=== PATIENT | female | born 1970 | race Asian ===

== ENCOUNTER 2018-07-21 07:31 | Emergency (ER) | payer OTHER ==
--- NOTE | 2018-07-21 08:10 | ED ---
Skin Complaint - HPI Summary HPI Summary: Pt is a 47 y/o F presenting to the ED with a chief skin complaint. On June 30 , she noticed that she had a scratch on her L hand, and noticed it looked infected on the . She put an abx bandage over it on the , but it did not help. On the 17 of July, the rash began around her mouth, and she woke up the next day with her entire face covered. 07/19, she noticed it all over her body, and yesterday it started to itch and was burning. About a year or so ago, she experienced something similar where she had a scratch on her R hand, but she treated it with tea tree oil and it went away. She reports associated pruritus of her genitals and yellow discharge of her L breast with some pain to her L nipple. Pt denies any fever, chills, erythema of eyes, sore throat, CP, SOB, cough, abdominal pain, N/V, dysuria, hematuria, myalgia, edema, sores on the bottom of her feet or hands, or dizziness. Shes been using oil cleansing soap for the past month or so that she has used in the past, but recently re-introduced, as well as hemp oil. LNMP unknown. - History of Current Complaint Chief Complaint: EDRashSkinAbscess Time Seen by Provider: 07/21/18 07:47 Stated Complaint: POSS ALLERGIC REACTION PER PT Hx Obtained From: Patient Hx Last Menstrual Period: 1 week ago Onset/Duration: Started Weeks Ago, Still Present Skin Exposure Onset/Duration: Weeks Ago - 06/30/18, Worse Since: - 07/07/18 Timing: Constant, Lasting Weeks Onset Severity: Mild Current Severity: Moderate Pain Intensity: 3 Pain Scale Used: 0-10 Numeric Skin Location: Generalized Character: Pruritus, Hives, Redness Aggravating Symptom(s): Nothing Alleviating Symptom(s): Nothing Associated Signs & Symptoms: Rash - Allergy/Home Medications Allergies/Adverse Reactions: Allergies Allergy/AdvReac Type Severity Reaction Status Date / Time erythromycin base Allergy Flushing Verified 09/13/17 09:36 Home Medications: Home Medications NK [No Home Medications Reported] 07/21/18 [History Confirmed 07/21/18] PMH/Surg Hx/FS Hx/Imm Hx Previously Healthy: Yes Endocrine/Hematology History: Denies: Hx Diabetes Respiratory History: Denies: Hx Asthma Infectious Disease History: No Infectious Disease History: Denies: Traveled Outside the [place] in Last 30 Days - Family History Known Family History: Negative: Hypertension, Diabetes - Social History Alcohol Use: Daily Hx Substance Use: No Substance Use Type: Reports: None Hx Tobacco Use: No Smoking Status (MU): Never Smoked Tobacco Review of Systems Negative: Fever, Chills Negative: Erythema Negative: Sore Throat Negative: Chest Pain Negative: Shortness Of Breath, Cough Negative: Abdominal Pain, Vomiting, Nausea Positive: other - pruritis, L breast discharge, L nipple pain. Negative: dysuria, hematuria Negative: Myalgia, Edema Positive: Rash. Negative: Other - sores on bottom of feet or palms of hands Neurological: Negative - dizziness All Other Systems Reviewed And Are Negative: Yes Physical Exam - Summary Physical Exam Summary: Constitutional: Well-developed, Well-nourished, Alert. (-) Distressed Skin: Patchy, scaley rash with excoriations on the face, L hand, and trunk. Sparing of the palms and soles. HENT: Normocephalic; Atraumatic. No oral lesions. Eyes: Conjunctiva normal Neck: Musculoskeletal ROM normal neck. (-) JVD, (-) Stridor, (-) Tracheal deviation Cardio: Rhythm regular, rate normal, Heart sounds normal; Intact distal pulses; The pedal pulses are 2+ and symmetric. Radial pulses are 2+ and symmetric. (-) Murmur Pulmonary/Chest wall: Effort normal. (-) Respiratory distress, (-) Wheezes, (-) Rales Abd: Soft, (-) tenderness, (-) Distension, (-) Guarding, (-) Rebound Musculoskeletal: (-) Edema Lymph: (-) Cervical adenopathy Neuro: Alert, Oriented x3 Psych: Mood and affect Normal Triage Information Reviewed: Yes Vital Signs On Initial Exam: Initial Vitals Temp Pulse Resp BP Pulse Ox 99.1 F 74 16 147/97 99 07/21/18 07:34 07/21/18 07:34 07/21/18 07:34 07/21/18 07:34 07/21/18 07:34 Vital Signs Reviewed: Yes Diagnostics - Vital Signs Vital Signs Temp Pulse Resp BP Pulse Ox 07/21/18 07:34 99.1 F 74 16 147/97 99 - Laboratory Result Diagrams: 07/21/18 08:16 07/21/18 08:16 Lab Statement: Any lab studies that have been ordered have been reviewed, and results considered in the medical decision making process. Course/Dx - Course Course Of Treatment: Pt is a 47 y/o F presenting to the ED with a chief skin complaint onset 06/30/18 but worse since 07/07/18, spreading to the rest of her body and becoming somewhat painful and pruritic over the last week or so. She reports rash, pruritus, pain, and yellow discharge of her L breast with some pain to her L nipple. Pt denies any fever, chills, erythema of eyes, sore throat , CP, SOB, cough, abdominal pain, N/V, dysuria, hematuria, myalgia, edema, sores on the bottom of her feet or hands, or dizziness. She states that she's been using oil cleansing soap for the past month or so that she has used in the past, but recently re-introduced, as well as hemp oil. Upon exam, the pt has a patchy, scaley rash with multiple excoriations on the face, L hand, and trunk, as well as sparing of the palms and soles. There are no oral lesions. I suspect dermatitis d/t the pt reporting use of multiple alternative personal care products. There are no findings for Don Davonte's syndrome. She will be d/c'ed with a dx of dermatitis and L breast discharge, as well as instructions to follow up with Alexa Cotton in 2-3 days and Shelli Jimenez in 2-3 days, as well as instructions to discontinue her use of the hemp oil and oil-based body wash. - Diagnoses Provider Diagnoses: Dermatitis, Breast discharge Discharge - Sign-Out/Discharge Documenting (check all that apply): Patient Departure Patient Received Moderate/Deep Sedation with Procedure: No - Discharge Plan Condition: Stable Disposition: HOME Referrals: Alexa Cotton MD [Medical Doctor] - [facility] [Outside] Additional Instructions: Please follow up with Alexa Cotton within the next 2-3 days. Please also follow up with Shelli Jimenez in the next 2-3 days. Discontinue use of your hemp oil as well as your oil based cleanser, as I suspect that could be the cause. Use Dove soap, as it is very gentle on the skin. Return to the ED with any new or worsening symptoms. - Attestation Statements Document Initiated by Scribe: Yes Documenting Scribe: Marilee Quiroga Provider For Whom Scribe is Documenting (Include Credential): Tyrel Asher MD. Scribe Attestation: IMarilee, scribed for Tyrel Asher MD. on 07/21/18 at 0915. Status of Scribe Document: Ready
[2018-07-21 08:27] LABS: Hematocrit 37 % (33-41); Hemoglobin 12.1 g/dL (12.0-16.0); Mean Corpuscular HGB Conc 33 g/dL (31-36); Mean Corpuscular Hemoglobin 28 pg (27-31); Mean Corpuscular Volume 86 fL (80-97); Mean Platelet Volume 7.9 fL (7.4-10.4); Platelet Count 313 10^3/uL (150-450); Red Blood Count 4.25 10^6 /uL (3.70-4.87); Red Cell Distribution Width 16 % (10.5-15); White Blood Count 4.9 10^3/uL (3.5-10.8)
[2018-07-21 08:46] LABS: ALT 11 U/L (7-52); AST 12 U/L (13-39); Albumin/Globulin Ratio 1.5 (1-3); Alkaline Phosphatase 34 U/L (34-104); Anion Gap 6 mmol/L (2-11); BUN/Creatinine Ratio 13.7 (8-20); Blood Urea Nitrogen 7 mg/dL (6-24); CO2 Carbon Dioxide 23 mmol/L (22-32); Calcium 9.1 mg/dL (8.6-10.3); Chloride 108 mmol/L (101-111); EGFR African American 157.1 (>60); EGFR Non-African American 129.8 (>60); Globulin 2.6 g/dL (2-4); Glucose 105 mg/dL (70-100); Potassium 3.7 mmol/L (3.5-5.0); Sodium 137 mmol/L (135-145); Total Protein 6.6 g/dL (6.4-8.9)
[2018-07-21 08:52] LABS: HCG Pregnancy < 0.60 mIU/mL
[2018-07-21 09:34] VITALS: BP 117/85
== END 2018-07-21 09:33 | disposition home or self-care (01) ==
LOC: ED 07:31
DX: L30.9 Dermatitis, unspecified (principal); R21 Rash and other nonspecific skin eruption; N64.52 Nipple discharge
CPT/HCPCS: 36415; 80053; 84702; 85027; 99282

== ENCOUNTER 2019-02-10 12:58 | Emergency (ER) | payer OTHER ==
[2019-02-10 13:10] VITALS: BP 117/77
--- NOTE | 2019-02-10 13:29 | UC ---
Respiratory Complaint HPI - HPI Summary HPI Summary: 48 yo female presents with cough. She tells me that she has had a dry irritating cough for the last 2 weeks. sick with similar symptoms. Pt has not taken anything OTC for her symptoms. Denies fever, chills, sinus symptoms, sore throat, SOB, chest congestion, chest pain, GERD symptoms. - History of Current Complaint Chief Complaint: UCGeneralIllness Stated Complaint: COUGH Time Seen by Provider: 02/10/19 13:29 Hx Obtained From: Patient Hx Last Menstrual Period: 02/10/19 Onset/Duration: Sudden Onset Severity Currently: None Pain Intensity: 0 Character: Cough: Nonproductive - Allergies/Home Medications Allergies/Adverse Reactions: Allergies Allergy/AdvReac Type Severity Reaction Status Date / Time erythromycin base Allergy Rash Verified 02/10/19 13:04 PMH/Surg Hx/FS Hx/Imm Hx - Additional Past Medical History Additional PMH: None - Surgical History Surgical History: None - Family History Known Family History: Negative: Hypertension, Diabetes - Social History Lives: With Family Alcohol Use: Occasionally Substance Use Type: None Smoking Status (MU): Never Smoked Tobacco Review of Systems All Other Systems Reviewed And Are Negative: No Constitutional: Positive: Negative Skin: Positive: Negative Eyes: Positive: Negative ENT: Positive: Negative Respiratory: Positive: Cough Cardiovascular: Positive: Negative Gastrointestinal: Positive: Negative Neurovascular: Positive: Negative Neurological: Positive: Negative Psychological: Positive: Negative Physical Exam - Summary Physical Exam Summary: GENERAL: NAD. WDWN. No pain distress. SKIN: No rashes, sores, lesions, or open wounds. HEENT: Head: AT/NC Eyes: EOM intact. Conjunctiva clear without inflammation or discharge. Ears: Hearing grossly normal. TMs intact, no bulging, erythema, or edema. Nose: Nasal mucosa pink and moist. NTTP maxillary and frontal sinus. Throat: Posterior oropharynx without exudates, erythema, or tonsillar enlargement. Uvula midline. NECK: Supple. Nontender. No lymphadenopathy. CHEST: CTAB. No accessory muscle use. Breathing comfortably and in no distress. CV: RRR. Pulses intact. Cap refill <2seconds NEURO: Alert. PSYCH: Age appropriate behavior. Triage Information Reviewed: Yes Vital Signs: Initial Vital Signs Temp 98.3 F 02/10/19 13:05 Pulse 67 02/10/19 13:05 Resp 16 02/10/19 13:05 BP 117/77 02/10/19 13:05 Pulse Ox 100 02/10/19 13:05 Vital Signs Reviewed: Yes Respiratory Course/Dx - Course Course Of Treatment: Suspect viral cough. Will rx for tessalon and have her f/u with PCP if symptoms do not improve - Differential Dx/Diagnosis Provider Diagnosis: Cough Discharge ED - Sign-Out/Discharge Documenting (check all that apply): Patient Departure All imaging exams completed and their final reports reviewed: No Studies - Discharge Plan Condition: Stable Disposition: HOME Prescriptions: Benzonatate CAP* [Tessalon 100 MG CAP*] 100 mg PO TID PRN #[id number] cap PRN Reason: Cough Patient Education Materials: Acute Cough (ED) Referrals: No Primary Care Phys,NOPCP [Primary Care Provider] - Additional Instructions: If you develop a fever, shortness of breath, chest pain, new or worsening symptoms - please call your PCP or go to the ED immediately. - Billing Disposition and Condition Condition: STABLE Disposition: Home
== END 2019-02-10 14:35 | disposition home or self-care (01) ==
LOC: UCEAST 12:58
DX: R05 Cough (principal); Z88.1 Allergy status to other antibiotic agents
CPT/HCPCS: 99212; G0463